=== PATIENT | male | born 1955 | race Caucasian/White ===

== ENCOUNTER 2016-09-17 09:28 | Inpatient (IN) | payer OTHER ==
[~2016-09-17] VITALS: Ht 167.6 cm; Wt 91.2 kg
[2016-09-17 10:01] LABS: BASOPHIL % 0.5 % (0-2)
[2016-09-17 10:05] LABS: CALCIUM 9.8 mg/dL (8.5-10.1); CARBON DIOXIDE 20.1 mmol/L (21-32); CHLORIDE SERUM 98 mmol/L (98-107); CREATININE SERUM 0.9 mg/dL (0.7-1.3); GFR1 > 60 mL/min; GLUCOSE SERUM 268 mg/dL (74-106); SODIUM SERUM 141 mmol/L (136-145)
[2016-09-17 10:09] LABS: ALBUMIN 4.1 g/dL (3.4-5.0); ALKALINE PHOSPHATASE 112 U/L (46-116); ALT/SGPT 47 U/L (16-63); AST/SGOT 28 U/L (15-37); BILIRUBIN TOTAL 0.6 mg/dL (0.20-1.00)
[2016-09-17 10:14] LABS: TOTAL PROTEIN, SERUM 9.3 g/dL (6.4-8.2)
[2016-09-17 10:15] LABS: PLATELET COUNT 189 x10^3mcL (130-400); RED CELL DISTRIBUTION WIDTH 13.4 % (11.5-14.5)
[2016-09-17] MEDS ORDERED: GABAPENTIN100 M2 PO (12:43)
[2016-09-17 13:01] LABS: UA SPECIFIC GRAVITY 1.015 (1.005-1.035); microscopic required? YES; urine erythrocyte 1+ (NEGATIVE)
[2016-09-17 13:07] LABS: T3 TOTAL 1.04 ng/mL
[2016-09-17 13:10] LABS: CHOLESTEROL/HDL RATIO 3.8
[2016-09-17 13:13] LABS: AMPHETAMINE QUAL UR NONE DETECTED (NEG <=1000)
[2016-09-17 13:18] LABS: FREE T4 1.12 ng/dL (0.76-1.46); FREE THYROXINE INDEX 2.6 ug/dL (1.4-4.5); T4(THYROXINE) 7.5 ug/dL (4.7-13.3)
[2016-09-17 13:21] VITALS: BP 199/96
[2016-09-17 15:30] VITALS: BP 158/80
[2016-09-17 16:00] VITALS: BP 143/73
[2016-09-17 17:49] VITALS: BP 139/71
[2016-09-17 22:01] VITALS: BP 139/76
[2016-09-18 06:25] VITALS: BP 161/83
[2016-09-18 07:04] VITALS: BP 131/73
[2016-09-18] MEDS ORDERED: LOP600 PO (11:39)
[2016-09-18] MEDS ORDERED: ECO81 PO (11:40)
[2016-09-18] MEDS ORDERED: ZES5 PO (11:40)
[2016-09-18] MEDS ORDERED: LIPI10 PO (11:40)
[2016-09-18] MEDS ORDERED: PEPCID20 MG PO (11:41)
[2016-09-18] MEDS ORDERED: NORCO1 TA2 PO (11:41)
[2016-09-18] MEDS ORDERED: ZOF4 PO (11:41)
[2016-09-18 12:59] VITALS: BP 155/84
[2016-09-18 13:00] VITALS: BP 155/84
== END 2016-09-18 14:08 | disposition home or self-care (01) | DRG 774 ==
LOC: ED 09:28 → DU 12:22
PROVIDERS: Emergency Medicine; ADMIT Family Medicine
DX: F10.129 Alcohol abuse with intoxication, unspecified (principal); F14.10 Cocaine abuse, uncomplicated; N17.0 Acute kidney failure with tubular necrosis; E11.42 Type 2 diabetes mellitus with diabetic polyneuropathy; K21.9 Gastro-esophageal reflux disease without esophagitis; I16.9 Hypertensive crisis, unspecified; E78.5 Hyperlipidemia, unspecified; E87.2 Acidosis; E86.0 Dehydration; E11.65 Type 2 diabetes mellitus with hyperglycemia; Z79.4 Long term (current) use of insulin; Z89.421 Acquired absence of other right toe(s); Z68.35 Body mass index [BMI] 35.0-35.9, adult
CPT/HCPCS: 80307; 82962; 83880; 84439; 87046; 87046-59; G0480; J0360; J0696; J1815; J2270; J2405; J3490; J7030; J7040; Q0092; Q9967